=== PATIENT | female | born 1945 | race Caucasian/White ===

== ENCOUNTER 2016-07-31 07:02 | Day surgery (SDC) | payer MEDICARE ==
[~2016-07-31 07:02] MED LIST: Acetaminophen TAB* 325 MG PO PRN; Buffered Lidocaine 0.9% SYRIN* 5 ML/SYR SYRINGE INTRADERM ONE
[2016-07-31] MEDS ORDERED: Phenylephrine 2.5% OPTH.SOL* 2 ML BTL ONE (07:11)
[2016-07-31] MEDS ORDERED: Lidocaine 1% MPF* 2 ML VIAL ONE (07:11)
[2016-07-31] MEDS ORDERED: Flurbiprofen 0.03% OPTH.SOL* 2.5 ML BTL ONE (07:11)
[2016-07-31] MEDS ORDERED: acetaZOLAMIDE TAB* 250 MG ONE (07:11)
[2016-07-31] MEDS ORDERED: Lidocaine 2% EPI 1:200000 MPF* 20 ML VIAL ONE (07:11)
[2016-07-31] MEDS ORDERED: Neomycin/Polymy/Dex OPTH.SUSP* MAXITROL 0.1% 5 ML ONE (07:11)
[2016-07-31] MEDS ORDERED: Cyclopentolate 1% OPTH.SOL* 2 ML BTL ONE (07:11)
[2016-07-31] MEDS ORDERED: Povidone Iodine 5% OPTH* 30 ML BTL ONE (07:11)
[2016-07-31] MEDS ORDERED: Proparacaine 0.5% OPHTH.SOL* 15 ML BTL ONE (07:11)
[2016-07-31] MEDS ORDERED: Buffered Lidocaine 0.9% SYRIN* 5 ML/SYR SYRINGE ONE (07:11)
[2016-07-31] MEDS ORDERED: Midazolam* 1 MG/ML 5 ML VIAL (5 MG) ONE (08:16)
[2016-07-31 09:10] VITALS: BP 131/59
--- NOTE | 2016-07-31 09:32 | OP ---
DATE OF OPERATION: 07/31/2016 - [facility] DATE OF : 1945. SURGEON: Matthias English M.D. PREOPERATIVE DIAGNOSIS: Cataract right eye. POSTOPERATIVE DIAGNOSIS: Cataract right eye. OPERATIVE PROCEDURE: Phacoemulsification right eye with IOL. DESCRIPTION OF PROCEDURE: The patient was brought to the operating room after being given 1/2% Alcaine with epinephrine drops in the preoperative area. The eye was prepped and draped in the usual sterile fashion. Sterile drape and eyelid speculum were placed. Again, topical 1/2% Alcaine with epinephrine was given. A paracentesis incision was made at the 9 o'clock position with the No.75 blade. Clear cornea incision 2.2 x 2.2-mm was created at the 12 o'clock position starting at the anterior limbus using the 2.2-mm keratome. The anterior chamber was irrigated with 0.4 mL of 1% non-preservative intracameral lidocaine and filled with DisCoVisc. A capsulorrhexis was completed using the cystotome and the Utrata forceps. Hydrodissection was performed with balanced salt solution. The lens nucleus was removed with the Phacoemulsification handpiece without incident. Cortex was removed with the irrigation-aspiration handpiece. The capsular bag was re-inflated using DisCoVisc and an [id number] implant was inserted with the shooter. The irrigation-aspiration handpiece was used to remove all residual DisCoVisc. The eye was refilled with balanced salt solution and the wound checked and found to be watertight. Topical Maxitrol drops were given. [id number]/[facility] #: [id number] [facility]
== END 2016-07-31 09:17 | disposition home or self-care (01) ==
LOC: OREAST 07:02
PROVIDERS: ATTEND Specialist
DX: H25.811 Combined forms of age-related cataract, right eye (principal); H40.053 Ocular hypertension, bilateral; I10 Essential (primary) hypertension; Z87.891 Personal history of nicotine dependence
CPT/HCPCS: A9270-GY; J2250; V2632

== ENCOUNTER 2016-08-07 07:08 | Day surgery (SDC) | payer MEDICARE ==
[2016-08-07] MEDS ORDERED: Midazolam* 1 MG/ML 2 ML VIAL (2 MG) ONE (09:06)
[2016-08-07 09:37] VITALS: BP 146/61
[2016-08-07] MEDS ORDERED: acetaZOLAMIDE TAB* 250 MG ONE (09:45)
[2016-08-07] MEDS ORDERED: Povidone Iodine 5% OPTH* 30 ML BTL ONE (09:45)
[2016-08-07] MEDS ORDERED: Neomycin/Polymy/Dex OPTH.SUSP* MAXITROL 0.1% 5 ML ONE (09:45)
[2016-08-07] MEDS ORDERED: Phenylephrine 2.5% OPTH.SOL* 2 ML BTL ONE (09:45)
[2016-08-07] MEDS ORDERED: Lidocaine 2% MPF* 2 ML VIAL ONE (09:45)
[2016-08-07] MEDS ORDERED: Flurbiprofen 0.03% OPTH.SOL* 2.5 ML BTL ONE (09:45)
[2016-08-07] MEDS ORDERED: Cyclopentolate 1% OPTH.SOL* 2 ML BTL ONE (09:45)
[2016-08-07] MEDS ORDERED: Proparacaine 0.5% OPHTH.SOL* 15 ML BTL ONE (09:45)
[2016-08-07] MEDS ORDERED: Lidocaine 2% EPI 1:200000 MPF* 20 ML VIAL ONE (09:45)
--- NOTE | 2016-08-07 14:06 | OP ---
OPERATIVE NOTE: DATE OF OPERATION: 08/07/16 DATE OF : [birth year] SURGEON: Matthias English M.D. PREOPERATIVE DIAGNOSIS: Cataract left eye. POSTOPERATIVE DIAGNOSIS: Cataract left eye. OPERATIVE PROCEDURE: Phacoemulsification left eye with IOL. PROCEDURE: The patient was brought to the operating room after being given 1/2% Alcaine with epinep hrine drops in the preoperative area. The eye was prepped and draped in the usual sterile fashion. Sterile drape and eyelid speculum were placed. Again, topical 1/2% Alcaine with epinephrine was gi ladi. A paracentesis incision was made at the 3 o'clock position with the No.75 blade. Clear cornea incision 2.2 x 2.2-mm was created at the 6 o'clock position starting at the anterior limbus using t he 2.2-mm keratome. The anterior chamber was irrigated with 0.4 mL of 1% non-preservative intracame ral lidocaine and filled with DisCoVisc. A capsulorrhexis was completed using the cystotome and the Utrata forceps. Hydrodissection was performed with balanced salt solution. The lens nucleus was re moved with the Phacoemulsification handpiece without incident. Cortex was removed with the irrigati on-aspiration handpiece. The capsular bag was re-inflated using DisCoVisc and an [id number] implant was inserted with the shooter. The irrigation-aspiration handpiece was used to remove all residual DisCoVisc. The eye was refilled with balanced salt solution and the wound checked and found to be w atertight. Topical Maxitrol drops were given. [id number]/[facility] #: [id number]
== END 2016-08-07 09:44 | disposition home or self-care (01) ==
LOC: OREAST 07:08
PROVIDERS: ATTEND Specialist
DX: H26.9 Unspecified cataract (principal); I10 Essential (primary) hypertension; E78.00 Pure hypercholesterolemia, unspecified; Z87.891 Personal history of nicotine dependence
CPT/HCPCS: A9270-GY; J2250; V2632

== ENCOUNTER 2018-07-02 10:46 | Emergency (ER) | payer MEDICARE ==
--- NOTE | 2018-07-02 11:23 | UC ---
Abdominal Pain Female HPI - HPI Summary HPI Summary: Patient presents to urgent care for evaluation of her ongoing, yet improving diarrhea and nausea. Patient states last weeks she and her drove up from [place]. On evening he arrived in the [facility] at her daughter house. Patient states she had some nausea and some stomach upset that night. Patient states by Friday she had diarrhea. Patient states she's continue to have diarrhea almost every day since this time. Patient states stool is becoming less diarrhea and more formed. No Blood or black in it. Patient states she has some mild intermittent nausea, no emesis. Patient took Tums last night that helped her nausea. Patient has been eating and drinking normally. Patient states she had a cheeseburger for dinner last evening without difficulty. Patient denies any pain just, nausea and queasy feeling in her upper belly. No back pain. No fevers or chills. No belching. No bad taste in her mouth. No rash. No trauma. No history of similar. Patient had a tubal ligation but no other abdominal surgeries. Patient had a non- concerning colonoscopy last year. No travel outside of [place]. no recent abx No sick contact. Patient states she has not yet called her doctor for an appointment but needs to do that now that she is back in [place]. Patient states she just wanted to get checked to make sure she didn't have a "infection " in her belly. Patient without any urine symptoms. No vaginal symptoms. Patient's medications reviewed this visit. - History of Current Complaint Chief Complaint: UCGI Stated Complaint: UPSET STOMACH Time Seen by Provider: 07/02/18 11:22 Hx Obtained From: Patient ?: No Onset/Duration: Gradual Onset Timing: Intermittent Episodes Lasting: Severity Initially: Mild Severity Currently: None Pain Intensity: 0 Pain Scale Used: 0-10 Numeric Location: Epigastric Radiates: No Character: Other - nausea/queasy Aggravating Factor(s): Nothing Alleviating Factor(s): Antacids Associated Signs and Symptoms: Positive: Nausea, Diarrhea. Negative: Blood in Stool, Urinary Symptoms, Vaginal Bleeding, Vomiting Allergies/Adverse Reactions: Allergies Allergy/AdvReac Type Severity Reaction Status Date / Time ciprofloxacin [From Cipro] Allergy Severe Difficulty Verified 07/02/18 11:03 Breathing hydrocodone [From Vicodin] Allergy Severe Difficulty Verified 07/02/18 11:03 Breathing metronidazole Allergy Severe difficulty Verified 07/02/18 11:03 brething Home Medications: Home Medications Acetaminophen TAB* [Tylenol TAB*] 325 mg PO Q4H PRN 07/02/18 [History Confirmed 07/02/18] Carvedilol TAB* [Coreg TAB*] 3.125 mg PO BID 07/02/18 [History Confirmed ] Spironolactone TAB* [Aldactone TAB*] 75 mg PO DAILY 07/02/18 [History Confirmed 07/02/18] Verapamil HCl [Verapamil HCl ER] 300 mg PO DAILY 07/02/18 [History Confirmed 11/12] Vitamin B Complex [Super B-50 Complex] 1 each PO DAILY 07/02/18 [History Confirmed 07/02/18] PMH/Surg Hx/FS Hx/Imm Hx Previously Healthy: Yes Cardiovascular History: Hypertension - Surgical History Surgical History: Yes Surgery Procedure, Year, and Place: , 1976, [place] - Family History Known Family History: Positive: Non-Contributory - Social History Occupation: Retired Lives: With Family Alcohol Use: None Substance Use Type: None Smoking Status (MU): Former Smoker Type: Cigarettes Amount Used/How Often: / PPD Length of Time of Smoking/Using Tobacco: 37 Years Have You Smoked in the Last Year: No When Did the Patient Quit Smoking/Using Tobacco: 1998 Review of Systems All Other Systems Reviewed And Are Negative: Yes Constitutional: Positive: Negative Skin: Positive: Negative Eyes: Positive: Negative ENT: Positive: Negative Respiratory: Positive: Negative Cardiovascular: Positive: Negative Gastrointestinal: Positive: Diarrhea, Nausea. Negative: Abdominal Pain, Vomiting Genitourinary: Positive: Negative Motor: Positive: Negative Is Patient Immunocompromised?: No Physical Exam - Summary Physical Exam Summary: Vital Signs Reviewed: Yes A+Ox3, no distress, easily change position on exam stretcher Eyes: Conjunctiva Clear, KATIE. EOM intact and full ENT: Hearing grossly normal TM x 2 clear, mmoist, uvula midline, no exudate, no erythema Neck: Positive: Supple Respiratory: Positive: No respiratory distress, No accessory muscle use + CTA throughout no w/r Cardiovascular: RRR nl s1, s2 no m/r CBT <2 sec abd soft + BS nt/nd no guarding, no distension, no CVA Musculoskeletal Exam: VILLANUEVA x 4 without difficulty Strength Intact, ROM Intact Neurological: Positive: Alert, + sensation throughout Psychological: Positive: Normal Response To Family Skin: Positive: no rash, no ecchymosis Triage Information Reviewed: Yes Vital Signs: Initial Vital Signs Temp 98.2 F 07/02/18 11:13 Pulse 65 07/02/18 11:13 Resp 20 07/02/18 11:13 BP 122/48 07/02/18 11:13 Pulse Ox 98 07/02/18 11:13 Abd Pain Female Course/Dx - Course Course Of Treatment: Patient presents to urgent care for evaluation of her improving at ongoing nausea and diarrhea that she's had for one week. Patient states this started when she was driving up from [place]. Patient without any sick contacts travel outside the [place] or others with similar symptoms. Patient states she is able to eat and drink without difficulty. No fever. Patient has any pain to states she has a nausea or queasy feeling in her upper abdomen. No fevers, chills, rash. Patient had a bowel movement this morning that was mostly formed. Patient just wanted to get checked. On exam vital signs are stable. Patient exam is normal non-concerning with good bowel sounds soft abdomen. Patient states yesterday she took some Tums that helped her nausea. We'll check a urine for hydration. Will draw CBC and chemistries. Recommend patient contact her PCP for follow-up. We'll send patient home with a stool culture kit she states she is unable to produce here. Discussed with patient strict return precautions. Patient states understanding and agreement with plan. - Differential Dx/Diagnosis Provider Diagnosis: Diarrhea, Nausea Discharge - Sign-Out/Discharge Documenting (check all that apply): Patient Departure All imaging exams completed and their final reports reviewed: No Studies - Discharge Plan Condition: Stable Disposition: HOME Patient Education Materials: Acute Diarrhea (ED) Referrals: Irma Avila MD [Primary Care Provider] - (Call for an appointment early next week) Additional Instructions: It's recommended to stay well-hydrated. Drink plenty of nonalcoholic, non- caffeinated beverages. You have blood work drawn today that we back the next 24 hours. It is any on concerning results you will receive a call from a care freight team associate. You have been sent home with an order form and collection kit for stool. It's recommended to bring a sample of your stool back to the lab for testing of bacteria that may be causing her diarrhea. It's a recommended that you consider starting acid reducing medication such as Pepcid to help with her acid reflux Contact her doctor today to schedule follow-up appointment next week. If you have increasing pain, vomiting, uncontrolled diarrhea, fever, or any other concerns it's recommended you go directly to emergency department for further evaluation and treatment. - Billing Disposition and Condition Condition: STABLE Disposition: Home
[2018-07-02 11:28] VITALS: BP 118/58
[2018-07-02 19:21] LABS: ABS Eosinophils 0.2 10^3/ul (0-0.6); ABS Monocytes 0.8 10^3/ul (0-0.8); ABS Neutrophils 2.9 10^3/ul (1.5-7.7); Calcium 8.7 mg/dL (8.6-10.3); Eosinophil % 2.9 %; Hematocrit 37 % (35-47); Hemoglobin 12.6 g/dL (12.0-16.0); Magnesium 1.6 mg/dL (1.9-2.7); Mean Corpuscular HGB Conc 34 g/dL (31-36); Mean Corpuscular Hemoglobin 30 pg (27-31); Mean Corpuscular Volume 87 fL (80-97); Mean Platelet Volume 8.3 fL (7.4-10.4); Nucleated Red Blood Cells % 0.1; Platelet Count 283 10^3/uL (150-450); Potassium 4.2 mmol/L (3.5-5.0); Red Blood Count 4.26 10^6 /uL (3.70-4.87); Red Cell Distribution Width 13 % (10.5-15); Total Bilirubin 0.5 mg/dL (0.2-1.0); White Blood Count 5.9 10^3/uL (3.5-10.8)
[2018-07-02 19:27] LABS: Albumin/Globulin Ratio 1.8 (1-3); BUN/Creatinine Ratio 27.5 (8-20); EGFR African American 73.1 (>60); EGFR Non-African American 60.4 (>60); Globulin 2.2 g/dL (2-4); Total Protein 6.2 g/dL (6.4-8.9)
--- NOTE | 2018-07-03 07:23 | UC ---
- Progress Note Progress Note: Laboratory results from July 12, 2018 comes back; CBC is normal CMP shows a slightly elevated BUN that's only been one point above normal I would consider normal. Magnesium was slightly low at 1.6 normal range is 1.9-2.7. Nursing to call patient and let them know Patient to follow-up with her primary care doctor to get these lab values rechecked. If patient wishes she can start an [id number] magnesium supplements. Course/Dx - Diagnoses Provider Diagnoses: Diarrhea, Nausea Discharge - Sign-Out/Discharge Documenting (check all that apply): Patient Departure All imaging exams completed and their final reports reviewed: No Studies - Discharge Plan Condition: Stable Disposition: HOME Patient Education Materials: Acute Diarrhea (ED) Referrals: Irma Avila MD [Primary Care Provider] - (Call for an appointment early next week) Additional Instructions: It's recommended to stay well-hydrated. Drink plenty of nonalcoholic, non- caffeinated beverages. You have blood work drawn today that we back the next 24 hours. It is any on concerning results you will receive a call from a care executive team leader. You have been sent home with an order form and collection kit for stool. It's recommended to bring a sample of your stool back to the lab for testing of bacteria that may be causing her diarrhea. It's a recommended that you consider starting acid reducing medication such as Pepcid to help with her acid reflux Contact her doctor today to schedule follow-up appointment next week. If you have increasing pain, vomiting, uncontrolled diarrhea, fever, or any other concerns it's recommended you go directly to emergency department for further evaluation and treatment. - Billing Disposition and Condition Condition: STABLE Disposition: Home
== END 2018-07-02 12:49 | disposition home or self-care (01) ==
LOC: UCCORT 10:46
DX: R19.7 Diarrhea, unspecified (principal); R11.0 Nausea; I10 Essential (primary) hypertension; Z88.5 Allergy status to narcotic agent; Z88.8 Allergy status to other drugs, medicaments and biological substances; Z87.891 Personal history of nicotine dependence
CPT/HCPCS: 36415; 80053; 81003; 83690; 83735; 85025; 99212; G0463